=== PATIENT | female | born 1940 | race Two or more races ===

== ENCOUNTER 2020-02-18 08:15 | Outpatient (CLI) | payer OTHER | END 2020-02-18 08:36 | disposition home or self-care (01) | LOC: PPH VACUNA 08:15 | PROVIDERS: ATTEND Emergency Medicine Pediatric Emergency Medicine | DX: Z23 Encounter for immunization (principal) ==

== ENCOUNTER 2020-02-18 09:55 | Outpatient (CLI) | payer OTHER | END 2020-02-18 10:06 | disposition HB | LOC: RAD 09:55 | PROVIDERS: ATTEND Orthopaedic Surgery | DX: M51.37 Other intervertebral disc degeneration, lumbosacral region (principal); M54.5 Low back pain; M53.3 Sacrococcygeal disorders, not elsewhere classified ==

== ENCOUNTER → 2020-02-20 10:52 | Outpatient (CLI) | payer OTHER | END | disposition home or self-care (01) | LOC: LAB 10:52 | PROVIDERS: ATTEND Orthopaedic Surgery | DX: E21.2 Other hyperparathyroidism (principal); E55.9 Vitamin D deficiency, unspecified; M85.88 Other specified disorders of bone density and structure, other site; E88.89 Other specified metabolic disorders; M81.8 Other osteoporosis without current pathological fracture; E56.1 Deficiency of vitamin K ==

== ENCOUNTER → 2020-03-10 08:00 | Outpatient (CLI) | payer OTHER | END | disposition home or self-care (01) | LOC: PPH VACUNA 08:00 | PROVIDERS: ATTEND Emergency Medicine Pediatric Emergency Medicine | DX: Z23 Encounter for immunization (principal) ==

== ENCOUNTER 2020-03-27 14:15 | Outpatient (CLI) | payer OTHER | END 2020-03-27 14:27 | disposition home or self-care (01) | LOC: MRI 14:15 | PROVIDERS: ATTEND Orthopaedic Surgery | DX: M54.5 Low back pain (principal) | CPT/HCPCS: 72148 ==

== ENCOUNTER 2021-07-28 11:06 | Outpatient (CLI) | payer OTHER | END 2021-07-28 11:08 | disposition home or self-care (01) | LOC: NUCLEAR 11:06 | PROVIDERS: ATTEND Orthopaedic Surgery | DX: M81.0 Age-related osteoporosis without current pathological fracture (principal) ==

== ENCOUNTER → 2021-07-28 12:33 | Outpatient (CLI) | payer OTHER | END | disposition home or self-care (01) | LOC: LAB 12:33 | PROVIDERS: ATTEND Orthopaedic Surgery | DX: E56.1 Deficiency of vitamin K (principal) ==

== ENCOUNTER 2022-01-27 09:28 | Outpatient (CLI) | payer OTHER | END 2022-01-27 09:29 | disposition home or self-care (01) | LOC: LAB 09:28 | PROVIDERS: ATTEND Orthopaedic Surgery | DX: M81.0 Age-related osteoporosis without current pathological fracture (principal); E55.9 Vitamin D deficiency, unspecified; E56.1 Deficiency of vitamin K ==

== ENCOUNTER → 2024-03-15 12:49 | Outpatient (CLI) | payer OTHER ==
[2024-03-15 15:47] LABS: ALBUMIN 3.9 gm/dL (3.4-5.0); BILIRUBIN TOTAL 0.41 mg/dL (0.3-1.2); CALCIUM 9.5 mg/dL (8.5-10.1); CREATININE SERUM 0.93 mg/dL (0.55-1.02); GFR 57.44; MAGNESIUM 2.1 mg/dL (1.8-2.4); PHOSPHOROUS 3.4 mg/dL (2.5-4.9); POTASSIUM 4.37 mEq/L (3.5-5.1); TOTAL PROTEIN 7.9 gm/dL (6.4-8.2)
== END | disposition home or self-care (01) ==
LOC: LAB 12:49
PROVIDERS: ATTEND Orthopaedic Surgery
DX: E55.9 Vitamin D deficiency, unspecified (principal); M85.9 Disorder of bone density and structure, unspecified; E56.1 Deficiency of vitamin K; E21.3 Hyperparathyroidism, unspecified; E88.89 Other specified metabolic disorders; M81.8 Other osteoporosis without current pathological fracture

== ENCOUNTER 2024-03-15 13:49 | Outpatient (CLI) | payer OTHER | END 2024-03-15 13:57 | disposition home or self-care (01) | LOC: RAD 13:49 | PROVIDERS: ATTEND Orthopaedic Surgery | DX: M46.1 Sacroiliitis, not elsewhere classified (principal) ==

== ENCOUNTER 2024-04-08 13:41 | Outpatient (CLI) | payer OTHER | END 2024-04-08 13:42 | disposition home or self-care (01) | LOC: NUCLEAR 13:41 | PROVIDERS: ATTEND Orthopaedic Surgery | DX: M81.0 Age-related osteoporosis without current pathological fracture (principal) ==

== ENCOUNTER 2024-07-25 12:19 | Outpatient (CLI) | payer OTHER | END 2024-07-25 12:23 | disposition home or self-care (01) | LOC: RAD 12:19 | PROVIDERS: ATTEND Orthopaedic Surgery | DX: M79.671 Pain in right foot (principal); M25.571 Pain in right ankle and joints of right foot ==

== ENCOUNTER 2024-08-26 09:24 | Outpatient (CLI) | payer OTHER | END 2024-08-26 09:26 | disposition home or self-care (01) | LOC: RAD 09:24 | PROVIDERS: ATTEND Orthopaedic Surgery | DX: M25.562 Pain in left knee (principal) ==

== ENCOUNTER 2024-09-06 12:07 | Outpatient (CLI) | payer OTHER | END 2024-09-06 12:13 | disposition home or self-care (01) | LOC: MRI 12:07 | PROVIDERS: ATTEND Orthopaedic Surgery | DX: M25.562 Pain in left knee (principal); M17.12 Unilateral primary osteoarthritis, left knee; M23.92 Unspecified internal derangement of left knee | CPT/HCPCS: 73718 ==